=== PATIENT | female | born 2000 | race Caucasian/White ===

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

== ENCOUNTER 2022-04-05 19:54 | Emergency (ER) | payer BC, SELFPAY ==
--- NOTE | 2022-04-05 20:02 | ED.FEMALEGU ---
HPI - Female Genitourinary General Stated complaint: UTI SYMPTOMS Time Seen by Provider: 04/05/22 20:15 Source: patient and family Mode of arrival: ambulatory Limitations: no limitations History of Present Illness HPI Narrative: Shey is a 21-year-old female patient presenting to the clinic today with complaints of lower stomach abdominal pain started around 4 or 5:00 this afternoon. Pain is sharp and over the pelvis/overall lower abdomen as well as into her low back. She has not had a bowel movement in 3 days. She denies any fever or chills. She is currently on her menses. She took Tylenol originally and this did not help her pain but then she took Motrin and this did help relieve her pain. Rates pain 4 out of 10. Related Data Home Medications Medication Instructions Recorded Confirmed norgestimate 0.25 mg-ethinyl 1 tablet PO DAILY 04/05/22 04/05/22 estradiol 35 mcg tablet (Estarylla) Allergies Allergy/AdvReac Type Severity Reaction Status Date / Time No Known Allergies Allergy Verified 04/05/22 20:11 Review of Systems Review of Systems: Pertinent positives per HPI. Patient denies any fever, chills, rash, headache, visual changes, dizziness, cough, runny nose, sore throat, shortness of breath, chest pain, palpitations, nausea, vomiting, diarrhea, constipation, or any urinary issues. PMFSH Comments At the time of my signature, I reviewed and agree with the nursing past medical, surgical, social, and family history. There is no relevant family history pertinent to the patient complaint. Exam Narrative: General: Well-developed, well nourished, in no apparent distress. Head: Normocephalic, atraumatic. Cardio: Regular rate and rhythm, s1 and s2 normal, no murmur appreciated. Resp: Clear to auscultation bilaterally, no rhonchi, rales, wheezing or rubs. Abdomen: Soft, pliable, bowel sounds present in all quadrants, mildly tender over the pelvis to palpation, no organomegly, no CVAT tenderness. Course Course Emergency Course: Portions of this record may have been created with voice recognition software. Level of Care: Express Care Visit Vital Signs Vital signs: Vital signs reviewed MDM - Female Genitourinary MDM Narrative Medical decision making narrative: At the time of visit patient is resting comfortably on the exam table. She currently rates her pain a 4 out of 10. UA was negative for any sign of infection or blood. I suspect the patient may be having dysmenorrhea versus constipation. She does not show any signs of acute appendicitis or ovarian cyst. Offered to complete an x-ray to rule out constipation in the clinic and patient and mother declined. Supportive measures were discussed with the patient she voiced understanding of discharge instructions and agreed with the treatment plan. Work note was given Differential Diagnosis Differential diagnosis: Likely urinary tract infection, cystitis, dysmenorrhea and other (Constipation) Discharge Plan Discharge Clinical Impression: Lower abdominal pain, Dysmenorrhea Patient Disposition: Home, Self-Care Condition: Stable Instructions: Antibiotic Form, Dysmenorrhea (ED), Abdominal Pain (ED) Additional Instructions: UA is negative for any sign of infection or blood. Increase fluids and stay well-hydrated Increase fiber in your diet Avoid dairy in your diet May take Motrin as needed for pain 600 mg every 6-8 hours as needed May apply heating pad to the lower abdomen/pelvis. Follow-up with your PCP in 3 to 5 days if symptoms persist or sooner if they worsen Go to the emergency room if you develop worsening of abdominal pain, high fever that is not controlled by Tylenol or Motrin, nausea/vomiting, shortness of breath, or chest pain Follow-up/Referrals: Braden Oconnor MD [Primary Care Provider] - Stand Alone Forms: Work/School Release IP Time of Disposition: 20:27 Quality NIHSS Nursing Documentation ED NIHSS nursing do
[2022-04-05 20:10] VITALS: BP 123/76; PULSE 64; RESP 20; TEMP 36.3; O2SAT 100
== END 2022-04-05 20:32 | disposition home or self-care (01) ==
PROVIDERS: Emergency Provider Nurse Practitioner Family; PCP Internal Medicine
DX: N94.6 Dysmenorrhea, unspecified (principal)
CPT/HCPCS: 81003; 99212; G0463

== ENCOUNTER 2022-04-08 21:53 | Emergency (ER) | payer BC, SELFPAY ==
--- NOTE | ~2022-04-08 | XR_ITS ---
EXAM: XR foot LT min 3V DATE: 04/08/2022 22:17 HISTORY: left foot injury . COMPARISON: None available. FINDINGS: Normal mineralization. No fracture or dislocation. No lytic or blastic lesion. Joint space s are maintained. No erosion or periosteal change. Soft tissues within normal limits. IMPRESSION: No acute osseous finding in the left foot. Reviewed, dictated and finalized at location K.
[2022-04-08 21:59] VITALS: BP 136/78; PULSE 75; RESP 16; TEMP 36.3; O2SAT 100
--- NOTE | 2022-04-08 23:19 | PC.NURSE ---
LAVON Lucas seeing pt in [facility] Room at this time.
--- NOTE | 2022-04-08 23:22 | ED.LOWEXIN ---
HPI - Extremity Injury (Lower) General Chief Complaint: Extremity Injury, Lower <KADE Torres Last Filed: 04/08/22 23:35> Stated Complaint: L foot injury <KADE Torres Last Filed: 04/08/22 23:35> Time Seen by Provider: 04/08/22 23:09 <KADE Torres Last Filed: 04/08/22 23:35> Source: patient <KADE Torres Last Filed: 04/08/22 23:35> Mode of arrival: ambulatory <KADE Torres Filed: 04/08/22 23:35> Limitations: no limitations <KADE Torres Last Filed: 04/08/22 23:35> History of Present Illness HPI Narrative: Patient is a 21-year-old female who presents to the ED with c/o pain to left foot. Patient reports she was working on around 9:30 PM when she excellently dropped a 50 pound dumbbell from about the level of her knee onto her left foot. Complains of pain and swelling to distal left foot, worse over her first toe. No other injuries. No ankle pain. No numbness, tingling. She has been able to ambulate. <KADE Torres Last Filed: 04/08/22 23:35> Related Data Home Medications: Home Medications Medication Instructions Recorded Confirmed norgestimate 0.25 mg-ethinyl 1 tablet PO DAILY 04/05/22 04/05/22 estradiol 35 mcg tablet (Estarylla) <KADE Torres Last Filed: 04/08/22 23:35> Allergies/Adverse Reactions: Allergies Allergy/AdvReac Type Severity Reaction Status Date / Time No Known Allergies Allergy Verified 04/08/22 22:03 <KADE Torres Last Filed: 04/08/22 23:35> Review of Systems Review of Systems: CONSTITUTIONAL: Denies fever, chills, or sweats. MUSCULOSKELETAL: Reports pain to left foot/toes. Denies left ankle pain. NEUROLOGIC: Denies tingling, numbness, or weakness. <Shayy Shah PA-C - Last Filed: 04/08/22 23:35> All systems reviewed & are unremarkable except as noted in HPI and below <Shayy Shah PA-C - Last Filed: 04/08/22 23:35> PMFSH Past Medical History Medical History: Medical History (Updated 04/09/22 @ 00:00 by Sergio Guillory) No pertinent past medical history <Shayy Shah PA-C - Last Filed: 04/08/22 23:35> Surgical History Surgical History: Surgical History (Updated 04/08/22 @ 23:30 by Shayy Shah PA-C) No pertinent past surgical history <Shayy Shah PA-C - Last Filed: 04/08/22 23:35> Social History Social History: Social History (Updated 04/08/22 @ 23:30 by Shayy Shah PA-C) Smoking status: Never smoker <Shayy Shah PA-C - Last Filed: 04/08/22 23:35> Exam Narrative: GENERAL: Well appearing, well-nourished, non-toxic, in no acute distress. HEAD: Normocephalic, atraumatic. NECK: Supple. No adenopathy, no masses. RESPIRATORY: Airway patent, respirations nonlabored. CARDIOVASCULAR: Regular rate and rhythm without murmurs, rubs, or gallops. Pedal pulses 2+ and equal bilaterally. MUSCULOSKELETAL: Moves all extremities. Limited ROM of L toes due to pain. Circular area of swelling, bruising, and tenderness to palpation over distal L foot, over 1st-3rd metatarsal heads and extending into proximal phalanges. Sensation intact. SKIN: Warm, dry, normal color. No rashes. NEURO: A&O X3. Speech clear. Cranial nerves II-XII grossly intact. No ataxic movements. PSYCHIATRIC: Appropriate mood and affect. Normal interaction. <Shayy Shah PA-C - Last Filed: 04/08/22 23:35> Course CIRCULAR HEAD SAW OPERATOR/PA Physician Supervision For this patient encounter, I reviewed the CIRCULAR HEAD SAW OPERATOR or PA documentation, treatment plan, and medical decision making <Jey Ordaz MD - Last Filed: 04/09/22 00:13> Vital Signs Vital signs: Vital Signs Temperature 97.4 F L 04/08/22 21:59 Pulse Rate 75 04/08/22 21:59 Respiratory Rate 16 04/08/22 21:59 Blood Pressure 136/78 04/08/22 21:59 Pulse Oximetry 100 10/0
[2022-04-08 23:39] VITALS: PULSE 76; RESP 16; O2SAT 100
== END 2022-04-08 23:42 | disposition home or self-care (01) ==
LOC: ANHED 23:27
PROVIDERS: Emergency Provider Emergency Medicine; PCP Internal Medicine
DX: S90.32XA Contusion of left foot, initial encounter (principal); W20.8XXA Other cause of strike by thrown, projected or falling object, initial encounter
CPT/HCPCS: 73630; 99283

== ENCOUNTER 2022-05-26 10:06 | Emergency (ER) | payer BC, SELFPAY ==
[2022-05-26 10:25] VITALS: BP 107/65; PULSE 86; RESP 16; TEMP 36.9; O2SAT 99
--- NOTE | 2022-05-26 10:41 | ED.FEMALEGU ---
HPI - Female Genitourinary General Chief complaint: Urogenital-Female Stated complaint: urine frequency and burning sensation Time Seen by Provider: 05/26/22 10:37 Source: patient Mode of arrival: ambulatory Limitations: no limitations History of Present Illness HPI Narrative: patient presents today with a 2 day history of dysuria and frequency. Denies any additional symptoms to include abdominal pain, back pain, fever, hematuria. She has tried no medication for symptoms prior to arrival. Denies any recent antibiotic use. Related Data Home Medications Medication Instructions Recorded Confirmed norgestimate 0.25 mg-ethinyl 1 tablet PO DAILY 04/05/22 05/26/22 estradiol 35 mcg tablet (Estarylla) Allergies Allergy/AdvReac Type Severity Reaction Status Date / Time No Known Allergies Allergy Verified 05/26/22 10:24 Review of Systems Review of Systems: CONSTITUTIONAL: Denies body aches, fever, chills, or sweats. EYES: Denies visual changes, redness, or discharge. ENT: Denies rhinorrhea, congestion, sore throat, or otalgia. CARDIOVASCULAR: Denies chest pain, palpitations, or edema. RESPIRATORY: Denies cough or dyspnea. GASTROINTESTINAL: Denies abdominal pain, nausea, vomiting, or diarrhea. GENITOURINARY: Denies hematuria.+ Dysuria, frequency SKIN: Denies rash, itching, or wounds. MUSCULOSKELETAL: Denies back pain, joint pain, or myalgia. NEUROLOGIC: Denies headache, numbness, tingling, or weakness. PSYCH: Denies depression or anxiety. PMFSH Past Medical History Medical History No pertinent past medical history Surgical History Surgical History No pertinent past surgical history Social History Social History Smoking status: Never smoker Comments At time of signature, I have reviewed and agree with nursing past medical, surgical, social and family history unless otherwise noted. Please see nursing chart for further information. There is no relevant family history pertinent to the presenting complaint Exam Narrative: GENERAL: Well-appearing, well-nourished, and in no acute distress. HEAD: Normocephalic, atraumatic. EYES: EOMI. No redness or drainage. Conjunctivae normal. ENT: Mucous membranes pink and moist. NECK: Normal AROM. CHEST: No respiratory distress. Clear to auscultation. HEART: Regular rate and rhythm. No murmur appreciated. Normal peripheral pulses. ABDOMEN: Soft, nontender, nondistended, normal active bowel sounds.-CVAT MUSCULOSKELETAL: No bony tenderness. EXTREMITIES: Normal range of motion. No edema. SKIN: Warm, dry, no rash. Capillary refill normal. Normal skin turgor. NEURO: No focal deficits. Alert and oriented x3. Gait steady. PSYCH: Normal affect. No signs of depression or anxiety. Course Course Level of Care: Express Care Visit Vital Signs Vital signs: Vital Signs Temperature 98.5 F 05/26/22 10:25 Pulse Rate 86 05/26/22 10:25 Respiratory Rate 16 05/26/22 10:25 Blood Pressure 107/65 05/26/22 10:25 Pulse Oximetry 99 05/26/22 10:25 Temperature 98.5 F 05/26/22 10:25 Pulse Rate 86 05/26/22 10:25 Respiratory Rate 16 05/26/22 10:25 Blood Pressure 107/65 05/26/22 10:25 Pulse Oximetry 99 05/26/22 10:25 reviewed MDM - Female Genitourinary Differential Diagnosis Differential diagnosis: Likely urinary tract infection, vaginitis, cystitis and other ( pyelonephritis, interstitial cystitis) Lab Data Attestation: I reviewed the patient's lab results. Labs: Urine Glucose Negative Reference Range: Negative Urine Bilirubin Negative Reference Range: Negative Urine Ketone Negative
== END 2022-05-26 10:50 | disposition home or self-care (01) ==
PROVIDERS: Emergency Provider Nurse Practitioner
DX: N30.01 Acute cystitis with hematuria (principal)
CPT/HCPCS: 81003; 87077; 87086; 87186; 99213; G0463

== ENCOUNTER 2023-03-07 13:19 | Emergency (ER) | payer BC, SELFPAY ==
[2023-03-07 13:25] VITALS: BP 120/75; PULSE 96; RESP 16; TEMP 36.8; O2SAT 100
--- NOTE | 2023-03-07 13:26 | ED.SKABFB ---
HPI - Skin/Abscess/Foreign Bdy General Chief complaint: Skin/Abscess/Foreign Body Stated complaint: Rash on right leg Time Seen by Provider: 03/07/23 13:26 Source: patient, RN notes reviewed and old records reviewed Mode of arrival: ambulatory Limitations: no limitations History of Present Illness HPI narrative: 22-year-old female presents to the [facility] complaints of a rash to her right leg. States has been there for approximately 1 month. Has seen primary doctor, was prescribed valacyclovir, Bactrim, prednisone over the course of the last month. Referred to Dermatology, has an appointment on the Patient on 02/11 was prescribed Bactroban and valacyclovir. On 02/12 was prescribed Bactrim and a Medrol Dosepak 02/18 prednisone Related Data Home Medications Medication Instructions Recorded Confirmed norgestimate 0.25 mg-ethinyl 1 tablet PO DAILY 04/05/22 03/07/23 estradiol 35 mcg tablet (Estarylla) Allergies Allergy/AdvReac Type Severity Reaction Status Date / Time No Known Allergies Allergy Verified 05/26/22 10:24 Review of Systems Review of Systems: All systems reviewed & are unremarkable except as noted in HPI and below Constitutional: Constitutional: Reports no additional constitutional complaints Eyes: Eyes: Reports no additional eye complaints ENT: Reports system reviewed and no additional complaints, except as documented Cardiovascular: Cardiovascular: Reports no additional cardiovascular complaints, Denies chest pain and Denies dyspnea Respiratory: Respiratory: Reports no additional respiratory complaints, Denies chest congestion, Denies cough and Denies dyspnea Gastrointestinal: Gastrointestinal: Reports no additional gastrointestinal complaints, Denies abdominal pain, Denies nausea and Denies vomiting Musculoskeletal: Musculoskeletal: Reports no additional musculoskeletal complaints Integumentary/Breasts: Skin/Breast: Reports as per HPI Neurologic: Reports system reviewed and no additional complaints, except as documented Psychiatric: Psychiatric: Reports no additional psychiatric complaints Allergic/Immunologic: Allergic/Immunologic: Reports no additional allergic/immunologic complaints [facility] Past Medical History Medical History No pertinent past medical history Surgical History Surgical History No pertinent past surgical history Social History Social History Smoking status: Never smoker Comments At the time of my signature, I reviewed and agree with the nursing past medical, surgical, social, and family history. There is no relevant family history pertinent to the patient complaint. Exam Const: General: cooperative, healthy appearing, comfortable, no acute distress, well developed, alert and well nourished Nutritional Appearance: well nourished Orientation/consciousness: patient oriented x3 Limitations: no limitations HENMT: Head: normal to inspection Ears: hearing grossly normal bilaterally and external ears normal Face/Nose/Sinus: Normal external nose present, Normal nares present, Normal nasal mucous membranes and turbinates present and normal facial exam Face and sinus: normal facial exam Mouth: Yes lip normal Eyes: General: appearance normal, both eyes and all related structures Alignment and Position: alignment normal Periorbital: periorbital findings normal Pupils: Equal, round and reactive pupils present EOM: EOMs intact bilaterally Neck: Neck: normal visual inspection, full ROM, no lymphadenopathy and no meningeal signs Chest: Chest palpation & inspection: normal inspection of the chest Resp: Effort & Inspection: normal respiratory effort and able to speak in complete sentences Auscultation: clear to auscultation bilaterally, no crackles, no rales, no rhonchi and no wheezes Cardio: Rate: re
== END 2023-03-07 14:04 | disposition home or self-care (01) ==
PROVIDERS: Emergency Provider Nurse Practitioner
DX: L73.9 Follicular disorder, unspecified (principal)
CPT/HCPCS: 99213; G0463

== ENCOUNTER 2023-03-11 19:22 | Emergency (ER) | payer SELFPAY ==
--- NOTE | 2023-03-11 19:51 | PC.NURSE ---
patient left from triage area 1950
== END 2023-03-11 19:51 | disposition left against medical advice (07) ==
DX: Z53.21 Procedure and treatment not carried out due to patient leaving prior to being seen by health care provider (principal)
CPT/HCPCS: 99199

== ENCOUNTER 2023-09-22 12:31 | Emergency (ER) | payer BC, SELFPAY ==
--- NOTE | 2023-09-22 12:35 | ED.GENADULT ---
HPI - General Adult General Chief complaint: Upper Respiratory Infection Stated complaint: Sore Throat Source: patient, RN notes reviewed and old records reviewed Mode of arrival: ambulatory Limitations: no limitations History of Present Illness HPI narrative: 22-year-old female presents to [facility] with complaint of sore throat and hoarseness that started yesterday. Patient denies any other symptoms. MD complaint: sore throat Onset (ago): day(s) (2) Related Data Home Medications Medication Instructions Recorded Confirmed norgestimate 0.25 mg-ethinyl 1 tablet PO DAILY 04/05/22 09/22/23 estradiol 35 mcg tablet (Estarylla) Allergies Allergy/AdvReac Type Severity Reaction Status Date / Time sulfamethoxazole Allergy Redness of Verified 09/22/23 13:04 [From Bactrim] Skin trimethoprim [From Bactrim] Allergy Redness of Verified 09/22/23 13:04 Skin Review of Systems Constitutional: Constitutional: Reports no additional constitutional complaints, Denies body ache(s), Denies chills, Denies fatigue, Denies fever(s) and Denies headache(s) Eyes: Eyes: Reports no additional eye complaints and Denies blurry vision ENT: Reports system reviewed and no additional complaints, except as documented, Denies vertigo, Denies dizziness, Denies ear discharge, Denies otalgia, Denies facial pain, Denies headache(s), Reports hoarseness, Denies nasal congestion, Denies nasal discharge, Denies sinus pain, Denies sinus pressure and Reports sore throat Cardiovascular: Cardiovascular: Reports no additional cardiovascular complaints, Denies chest pain, Denies chest pain at rest, Denies rapid heart rate and Denies dyspnea Respiratory: Respiratory: Reports no additional respiratory complaints, Denies chest congestion, Denies cough, Denies pain on inspiration, Denies pain with cough and Denies dyspnea Gastrointestinal: Gastrointestinal: Denies abdominal pain, Denies diarrhea, Denies nausea and Denies vomiting Integumentary/Breasts: Skin/Breast: Denies rash Neurologic: Reports system reviewed and no additional complaints, except as documented, Denies vertigo, Denies dizziness and Denies headache(s) Endocrine: Endocrine: Denies fatigue PMFSH Past Medical History Medical History No pertinent past medical history Surgical History Surgical History No pertinent past surgical history Social History Social History Smoking status: Never smoker Comments At the time of my signature, I reviewed and agree with the nursing past medical, surgical, social, and family history. There is no relevant family history pertinent to the patient complaint. Exam Const: General: cooperative, healthy appearing, no acute distress and well nourished Nutritional Appearance: well nourished Orientation/consciousness: patient oriented x3 Limitations: no limitations HENMT: Head: normal to inspection and normocephalic Ears: external ears normal, TM's normal bilaterally, EAC's normal and mastoids normal Face/Nose/Sinus: normal facial exam Face and sinus: normal facial exam Mouth: Yes Normal oral and palatal mucosa present, Yes oropharynx normal and Yes moist mucous membranes Throat: tonsils normal, uvula midline, normal tonsils, no peritonsillar masses, posterior oropharynx abnormal erythema, no postnasal drainage and no uvular edema Eyes: General: appearance normal, both eyes and all related structures Sclera: sclerae normal Pupils: Equal, round and reactive pupils present Resp: Effort & Inspection: normal respiratory effort, able to speak in complete sentences, no audible wheezes, no cough, no respiratory distress and no retractions Auscultation: clear to auscultation bilaterally, no crackles, no rales, no rhonchi and no wheezes Cardio: Rate: regular rate Rhythm: regular rhythm Skin
[2023-09-22 12:37] VITALS: BP 100/73; PULSE 85; RESP 16; TEMP 36.2; O2SAT 100
== END 2023-09-22 13:13 | disposition home or self-care (01) ==
PROVIDERS: Emergency Provider Registered Nurse
DX: J04.0 Acute laryngitis (principal); Z20.822 Contact with and (suspected) exposure to COVID-19
CPT/HCPCS: 87081; 87426; 87804; 87880; 99213; G0463